=== PATIENT | female | born 1970 | race Caucasian/White ===

== ENCOUNTER → 2016-11-26 | Outpatient (CLI) | payer BC ==
[~2016-11-26] MED LIST: NPR/250 PO
--- NOTE | 2016-11-26 14:55 | MAMMOGRAPHY REPORT ---
UNILATERAL LEFT DIGITAL DIAGNOSTIC MAMMOGRAM: 11/26/2016 CLINICAL HISTORY: 46-year-old woman with a family history of breast cancer = mother, called back fro m screening mammography for a possible increasing clustered microcalcifications in the upper outer p osterior left breast. TECHNIQUE: Spot magnification left CC and ML views were obtained. COMPARISON: Comparison is made to exams dated: 11/06/2016 mammogram, 10/26/2015 mammogram, 10/25/2014 mammogram, 10/23/2013 mammogram, 10/14/2012 mammogram, and 10/10/2011 mammogram - [facility]. BREAST COMPOSITION: The tissue of the left breast is heterogeneously dense, which may obscure small masses. FINDINGS: There is an 8 mm grouping of predominantly round and punctate microcalcifications in the upper outer posterior left breast. On the spot magnification ML views, nearly all of the calcificat ions demonstrate layering, confirming benign milk of calcium. Given that 1-2 of the microcalcificat ions do not demonstrate layering, a short interval follow-up is recommended to ensure stability in 6 months. No obvious mass, architectural distortion or other suspicious clustered calcifications are seen in the visualized left breast. IMPRESSION: ACR-BI-RADS CATEGORY 3: PROBABLY BENIGN There is an 8 mm grouping of round and punctate microcalcifications in the upper outer posterior lef t breast. Nearly all of the microcalcifications demonstrate layering or teacupping on the spot magn ification MLO view, consistent with benign milk of calcium. Given that 1-2 of the microcalcificatio ns do not layer, a short interval follow-up is recommended to ensure stability in 6 months. These results and recommendations were discussed with the patient at the time of the exam. She tent atively scheduled a follow-up appointment prior to leaving our department. Approximately 10% of breast cancers are not detected with mammography. A negative mammographic repor t should not delay biopsy if a clinically suggestive mass is present. Sintia Ordonez M.D. ay/:11/26/2016 13:13:09 Credit Card Associate: Shannon JOHNSON)(Margaret), [facility] letter sent: Follow Up Recommended 3 BI-RADS Code: ACR-BI-RADS Category 3: Probably Benign
== END | disposition home or self-care (01) ==
LOC: C.MAMM 12:45
PROVIDERS: ATTEND Obstetrics & Gynecology
DX: R92.0 Mammographic microcalcification found on diagnostic imaging of breast (principal)

== ENCOUNTER → 2017-03-05 | Outpatient (CLI) | payer BC ==
[~2017-03-05] MED LIST changes: +NAPR250T3 PO; -NPR/250 PO
== END | disposition home or self-care (01) ==
LOC: C.PAPS 09:38
PROVIDERS: ATTEND Obstetrics & Gynecology
DX: Z01.419 Encounter for gynecological examination (general) (routine) without abnormal findings (principal)

== ENCOUNTER → 2017-04-18 | Outpatient (CLI) | payer BC ==
--- NOTE | 2017-04-18 10:18 | DIAGNOSTIC IMAGING REPORT ---
LEFT FOURTH FINGER 3 VIEWS CLINICAL HISTORY: Pain status post trauma COMPARISON: None. DISCUSSION: No acute fractures or dislocations are visualized. IMPRESSION: No fractures or dislocations identified. Electronically signed by: Nicolas Valentine M.D. 04/18/2017 10:17 AM Dictated Date/Time: 04/18/2017 10:16 AM
== END | disposition home or self-care (01) ==
LOC: C.RAD 09:51
PROVIDERS: ATTEND Family Medicine
DX: S62.615A Displaced fracture of proximal phalanx of left ring finger, initial encounter for closed fracture (principal); X58.XXXA Exposure to other specified factors, initial encounter

== ENCOUNTER → 2017-05-28 | Outpatient (CLI) | payer BC ==
[~2017-05-28] MED LIST changes: -NAPR250T3 PO; +NPR/250 PO
--- NOTE | 2017-05-28 13:54 | MAMMOGRAPHY REPORT ---
UNILATERAL LEFT DIGITAL DIAGNOSTIC MAMMOGRAM TOMOSYNTHESIS WITH CAD: 05/28/2017 CLINICAL HISTORY: 46-year-old woman presents for follow-up in the left breast, with particular attent ion to a grouping of round and punctate microcalcifications in the upper outer posterior breast, some of which demonstrated layering, suggesting benign milk of calcium. TECHNIQUE: Left breast tomosynthesis in addition to standard 2D mammography was performed. Spot magn ification left CC and ML views were also obtained. Current study was also evaluated with a Computer Aided Detection (CAD) system. COMPARISON: Comparison is made to exams dated: 11/26/2016 mammogram, 11/06/2016 mammogram, 10/26/2015 m ammogram, 10/25/2014 mammogram, 10/14/2012 mammogram, and 10/10/2011 mammogram - [facility]. BREAST COMPOSITION: The tissue of the left breast is heterogeneously dense, which may obscure small masses. FINDINGS: The parenchymal pattern of the left breast is similar to prior mammograms. There are scatt ered benign coarse and round calcifications. There is a 7.5 mm grouping of round microcalcifications in the upper outer posterior left breast. On the spot magnification views, some of the calcificatio ns demonstrate layering suggesting benign milk of calcium but a few of the punctate microcalcificatio ns do not definitely layer. These are stable comparing to the spot magnification views performed 07/2017, but lumbar stability is needed. Another six-month follow-up diagnostic left mammogram inclu ding spot magnification views is recommended. No new suspicious mass, architectural distortion or cl uster of microcalcifications is seen throughout the left breast. IMPRESSION: ACR-BI-RADS CATEGORY 3: PROBABLY BENIGN Stable mammographic appearance of the left breast including a 7.5 mm grouping/cluster of microcalcifi cations in the upper outer posterior breast. This most likely represent benign fibrocystic changes, given that some of the calcifications demonstrate layering. However another six-month follow-up diag nostic mammogram including spot magnification views is read made to ensure longer stability. Annual right mammography will also be due at that time. These results and recommendations were discussed with the patient at the time of the exam. Approximately 10% of breast cancers are not detected with mammography. A negative mammographic report should not delay biopsy if a clinically suggestive mass is present. Sintia Ordonez M.D. ay/:05/28/2017 13:25:47 Sales Enablement Specialist: Cynthia JOHNSON)(Margaret), [facility] letter sent: Follow Up Recommended 3 BI-RADS Code: ACR-BI-RADS Category 3: Probably Benign
== END | disposition home or self-care (01) ==
LOC: C.MAMM 08:18
PROVIDERS: ATTEND Obstetrics & Gynecology
DX: R92.0 Mammographic microcalcification found on diagnostic imaging of breast (principal)

== ENCOUNTER → 2017-11-28 | Outpatient (CLI) | payer OTHER ==
[~2017-11-28] MED LIST changes: +NAPR250T3 PO; -NPR/250 PO
--- NOTE | 2017-11-28 14:40 | MAMMOGRAPHY REPORT ---
BILATERAL DIGITAL DIAGNOSTIC MAMMOGRAM TOMOSYNTHESIS WITH CAD: 11/28/2017 CLINICAL HISTORY: Short interval follow-up of left breast calcifications. Due for annual mammography of the right breast. The patient reports no palpable lumps or other current complaints. TECHNIQUE: Breast tomosynthesis in addition to standard 2D mammography was performed. Current study was also evaluated with a Computer Aided Detection (CAD) system. Bilateral CC and MLO 2-D and tomosy nthesis images and spot magnification left CC and ML views were obtained. COMPARISON: Comparison is made to exams dated: 05/28/2017 mammogram, 11/26/2016 mammogram, 11/06/2016 m ammogram, 10/26/2015 mammogram, 10/25/2014 mammogram, and 10/23/2013 mammogram - [facility]. BREAST COMPOSITION: The tissue of both breasts is heterogeneously dense, which may obscure small mas ses. FINDINGS: Again noted are grouped calcifications within the left upper outer quadrant, which are pre dominantly punctate/round in morphology. Many of the calcifications demonstrate layering on the late ral view, best demonstrated on the prior 11/26/2016 exam, and are consistent with benign milk of calciu m. The calcifications are stable on spot magnification views dating back to 11/26/2016, and in retrosp ect are not significantly changed on full-field views from the 2013 and 2012 exams. Given the stabil ity and evidence of layering, the calcifications are benign and felt to represent milk of calcium/fib rocystic changes. The remainder of both breasts are stable compared to prior exams, without suspicious masses, calcific ations, or areas of architectural distortion noted. Other scattered bilateral benign-appearing calci fications are not significantly changed. IMPRESSION: ACR BI-RADS CATEGORY 2: BENIGN Grouped calcifications in the left upper outer quadrant are stable and are considered benign and like ly represent milk of calcium/fibrocystic changes. There is no mammographic evidence of malignancy in either breast. A 1 year screening mammogram is recommended. The patient has been verbally notified of the results. Approximately 10% of breast cancers are not detected with mammography. A negative mammographic report should not delay biopsy if a clinically suggestive mass is present. Snow Jones M.D. /:11/28/2017 08:59:51 Ornamental Metal Erector: Shannon Hector, [facility] letter sent: Normal 11/19 BI-RADS Code: ACR BI-RADS Category 2: Benign
== END | disposition home or self-care (01) ==
LOC: C.MAMM 08:31
PROVIDERS: ATTEND Obstetrics & Gynecology
DX: R92.1 Mammographic calcification found on diagnostic imaging of breast (principal)

== ENCOUNTER 2023-11-11 23:00 | Inpatient (IN) ==
--- OUTSIDE RECORDS SUMMARY | 2023-11-11 23:03 | External Medical Summary | Continuity of Care Document ---
Author Name Unknown Organization [address] [id number] Care Team Providers Care Pelletizer Name Role Phone Tomas Shirley Primary Care Physician [phone] Encounter [facility] YANNICKDAMASOR [id number] Date(s): 11/07/23 - 11/07/[address] [address] [phone] Encounter Diagnosis HTN (hypertension)(Discharge Diagnosis) - 11/07/23 PND (post-nasal drip)(Discharge Diagnosis) - 11/07/23 Discharge Disposition: Home or Self Care Attending Physician: CARMENCITA Dong Tara Referring Physician: CARMENCITA Dong Tara Allergies, Adverse Reactions, Alerts No Known Medication Allergies Substance Reaction Severity Status Bee stings rash Active Assessment and Plan Extracted from: Title:follow up Author:CARMENCITA Dong Tara Date: 1.HTN (hypertension) Acute/Chronic: chronic Goal:Resolution/ control Status:stable/controlled Data: records/pt report Plan:BP Still elevated in office. She will get cuff and check at home. Bring cuff in to next appt. Will also check bmp. Follow up in weeks. 2.PND (post-nasal drip) Acute/Chronic: chronic Goal:Resolution/ control Status:stable/controlled Data: records/pt report Plan:Recommend otc nasal steroid . time spent reviewing chart, face to face visit, ordersand documentation: 34 min Immunizations Given and Recorded Vaccine Date Status Refusal Reason zoster vaccine, inactivated 04/10/22 Given Medications EPINEPHrine 0.3 mg injectable kit Start: 07/14/21 16:46:00 EDT, 0.3 mg =, IM, ONCE, Disp# 1 kit, Refills: 1, PRN: as needed for anaphylaxis, Pharmacy: [id number] Start Date: 07/14/21 Status: Ordered lisinopril 5 mg oral tablet Start: 10/22/23 11:56:00 EST, 1 tab, PO, Daily, Disp# 30 tab, Refills: 1, Pharmacy: [id number] Start Date: 10/22/23 Status: Ordered Mental Status 11/07/23 Barriers to Learning one year None evide nt Mandatory Health Literacy Documentation Yes Health Literacy Communication Barriers N ever Primary Language Gabonese Problem List Condition Confirmation Course Effective Dates Status H ealth Status Informant Arthritis of carpometacarpal (CMC) joint of right thumb Confirmed Active Multiple nevi Confirmed Active Changing skin lesion Confirmed Active History of basal cell carcinoma of skin Confirmed Active Hypertrophic scar Confirmed Active Inflamed seborrheic keratosis Confirmed Active Cigarette nicotine dependence Confirmed Active Osteoarthritis Confirmed Active Rosacea Confirmed Active Seborrheic keratoses Confirmed Active SK (solar keratosis) Confirmed Active Sun-damaged skin Confirmed Active Tobacco abuse Confirmed Active Diagnosis Diagnosis Type Effective Dates Health Status Cl inical Service Informant HTN (hypertension) Discharge Diagnosis 11/07/23 Non-Specified PND (post-nasal drip) Discharge Diagnosis 11/07/23 Procedures Procedure Date Related Diagnosis Body Site Status CT of lungs 1 10/22/22 Completed Plain X-ray of right hand 2 09/28/22 Completed Mammography - screening 3 09/22/21 Completed Mammogram - screening 4 09/17/20 C ompleted DIAGNOSTIC COLONOSCOPY 5, 6 06/22/20 Completed Shave biopsy and cauterisation of skin 08/31/19 Completed Mammogram 7, 8 01/19/19 Completed Electrodesiccation of lesion of skin 9 11/24/18 Completed Shave biopsy and cauterisation of skin 05/27/18 Completed Mohs micrographic surgery 01/15/18 Completed Mammogram - localization 10 11/28/17 Completed Shave biopsy 11 11/20/17 Completed Mammogram - localization 12 05/28/17 Completed Mammogram - localization 13 11/26/16 Completed Mammogram 14 11/06/16 Completed Total abdominal hysterectomy and removal of vaginal cuff 04/03/16 Complete d Excision 04/22/13 Completed Shave biopsy of skin 12/19/11 Comp leted Shave biopsy Completed 1Impresion: Multiple small solid noncalcified nodules that messure up to 5mm. These are likely benign and can be assessed on routine annual screening CT. Lung RADS catgory 1 - benign appearance or behavior, nodules with a very low likelihood of becoming a clinically active cancer due to size or lack of growth Continue annual screening 2Impression: 1. No acute fracture or dislocation within the right hand 2. Moderate osteoarthritis of the right first carpometacarpal joint 3There is no mammographic evidence of malignancy. A 1 year screening mammogram is recommended. 4there is no mammographic evidence of malignancy. A 1 year screening mammogram is recommended. 5Diverticulosis in the sigmoid colon. No specimens collected. 6Repeat in 10 years. 7There is no mammographic evidence of malignancy. a 1 yr screening mammogram is recommended 8(01/19/19) No malignancy. One year screening recommended. 9ED&C Left central upper back 10benign groupled calcifications in the left upper outer quadrant are stable and are considered benign and likely represnet mild of calciumfibrocystic changes. there is no mammographic evidence of malginanacyin eithere breast 1 yr screening recommeded 11left lateral forehead 12probably benign stable mammogrampch appearance of the left breast including a 7.5 mm grouping/cluster of microcalcifications in the upper outer posterior breast. this most likely represent benign fibrocystic changes, given that some of the calcifications demonstrate layering. howerever antoehr 6 month f/u diagnostic mammogram incluiding spot magnificaiton views is read made to ensure longer stablitysl 13There is a 8mm grouping of round and punctate microcalcifigation in the upper outer posterior left breast. Nearly all of the microcalcifications demonstrates layering or teacupping on the spot magnification MLO view, cinsistent with benign milk or calcium. Given that 1-2 0f the microcalcifications do not layer, a short interval follow-up is recommended to ensure stability in 6 months 14incomplete eval, need additional imaging possible increasing grouped microcalcifications in left breast needs additional eval Vital Signs Most recent to oldest [Reference Range]: 1 Height 175 cm (11/07/23 8:58 AM) Patient Weight 67.2 kg (11/07/23 8:58 AM) Body Mass Index 21.94 kg/m2 (11/07/23 8:58 AM) Heart Rate 74 bpm (11/07/23 8:58 AM) Respiratory Rate 16 br/min (11/07/23 8:58 AM) Blood Pressure 144/92mmHg (11/07/23 8:58 AM) Cuff Pulse Pressure 52 mmHg (11/07/23 8:58 AM) Social History Social History Type Response Tobacco Current every day sm beatriz, Cigarettes, 0.5 per day. 35 year(s). Started age 16 Years. Smoking Status Current every day [facility] smoker Sex [facility]CM Outpt Note * CARMENCITA Dong Tara: PERFORM Event Display: [facility] Outpt Note Authored Date: [id number] Chief Complaint f/u BP, started lisinopril, has not monitored at home History of Present Illness Pt here for BP/HTN follow up. She has not checked bp at home. No side effects with lisinopril. She also would like her ears checked due to recent ear infection. She does have some nasal congestion still also. Review of Systems Constitutional: No fever, chills, sweats EENT:No vision change, eye pain, , epistaxis, dysphagia, change in hearing, tinnitus, vertigo, oral ulcers or lesions. See HPI Pulmonary: No shortness of breath, dyspnea with exertion, cough, hemoptysis, wheezing, chest pain. Cardiovascular: No chest pain, palpitations, syncope, edema, cyanosis, claudication, orthopnea. Neurologic: No headache, lightheadedness, dizziness Psychiatric: No depression, anxiety Physical Exam Vitals & Measurements HR:74(Monitored) RR:16 BP:144/92 SpO2:97% HT:175cm WT:67.200kg(Dosing) WT:67.2kg BMI:21.94 PHQ2 Data(Data Documented on:11/07/2023 08:58) Emotional health assessment NEGATIVE head- normocephalic eyes- PERRLA , conjunctiva clear, sclera white, anicteric, ears- TM's non-injected, good light reflex, no protrusion or retraction neck-no lymphadenopathy, masses, or thyromegaly Pulmonary- chest expansion symmetric, CTA (clear to auscultation), eupnea, no adventitious sounds (rales, crackles, wheezes) CV (cardiovascular)- RRR no m/r/g (systolic ejection murmur, rubs, gallops), good peripheral perfusion Assessment/Plan 1.HTN (hypertension) Acute/Chronic: chronic Goal:Resolution/ control Status:stable/controlled Data: records/pt report Plan:BP Still elevated in office. She will get cuff and check at home. Bring cuff in to next appt. Will also check bmp. Follow up in weeks. 2.PND (post-nasal drip) Acute/Chronic: chronic Goal:Resolution/ control Status:stable/controlled Data: records/pt report Plan:Recommend otc nasal steroid . time spent reviewing chart, face to face visit, ordersand documentation: 34 min Problem List/Past Medical History Ongoing Arthritis of carpometacarpal (CMC) joint of right thumb Changing skin lesion Cigarette nicotine dependence History of basal cell carcinoma of skin Hypertrophic scar Inflamed seborrheic keratosis Multiple nevi Osteoarthritis Rosacea Seborrheic keratoses SK (solar keratosis) Sun-damaged skin Tobacco abuse Historical Anemia BCC (basal cell carcinoma) Encounter for smoking cessation counseling Hx of skin malignancy Melanocytic nevi of trunk Pain of right thumb Skin lesion Skin tag Procedure/Surgical History CT of lungs (10/22/2022)Plain X-ray of right hand (09/28/2022)Mammography - screening (09/22/2021)Mammogram - screening (09/17/2020)DIAGNOSTIC COLONOSCOPY (06/22/2020)Shave biopsy and cauterisation of skin (08/31/2019)Mammogram (01/19/2019)Electrodesiccation of lesion of skin (11/24/2018)Shave biopsy and cauterisation of skin (05/27/2018)Mohs micrographic surgery (01/15/2018)Mammogram - localization (11/28/2017)Shave biopsy (11/20/2017)Mammogram - localization (05/28/2017)Mammogram - localization (11/26/2016)Mammogram (11/06/2016)Total abdominalhysterectomy and removal of vaginal cuff (04/03/2016)Excision (04/22/2013)Shave biopsy of skin (12/19/2011)Shave biopsy Medications EPINEPHrine(EPINEPHrine 0.3 mg injectable kit), 0.3 mg, IM, ONCE, PRN, 1 refills lisinopril(lisinopril 5 mg oral tablet), 5 mg= 1 tab, PO, Daily, 1 refills Allergies Bee stingsrash No Known Medication Allergies Social History Smoking Status Current every day light smoker Alcohol - No Risk 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 Cigarette smoker: Mother. Pulmonary fibrosis: Father. Stroke: Unknown. Health Status Family Member(s) Family Member(s) Relationship: Mother, Age: 76 Years, Cause: Lung cancer Immunizations Vaccine Date Status zoster vaccine, inactivated 04/10/2022 Given Recommendations Health Maintenance Pending(in the next year) OverDue Adult Influenza Vaccine due05/18/23and every 1year Due Adult COVID-19 Vaccination due11/07/23Unknown Frequency Adult Social Determinants of Health Screening due11/07/23Unknown Frequency Adult Tdap/Td Vaccine due11/07/23Unknown Frequency Lipid Screening due11/07/23Unknown Frequency Pneumococcal Vaccine Adults and Adolescents with Chronic Illness due11/07/23One-time only Shingles Vaccine due11/07/23One-time only Satisfied(in the past 1 year) Satisfied Body Mass Index on11/07/23.Satisfied by IRVING Watt Heather Breast Cancer Screening on10/03/23.Satisfied by TIGRE Jolly Lynnae Electronic Signature on File Electronically Reviewed/Signed by: CARMENCITA Shane Author Signature Dt/Tm:11/07/2023 10:34 AM Department of Family Medicine TB Patient Care team information Care Team Personnel Name: MD Shirley Christopher Position: Physician - Family Med Member Role: Primary Care Provider Address: Address: [address] [address] [place] Care Team Related Persons Name: LORETO LINDO Address: home [address] [place] [phone] Name: LORETO LINDO Address: formerly [facility] Address: [address] [place], [place] [id number]
[2023-11-11] MEDS ORDERED: ONDANSETRON INJ 2 MG/ML 2 ML VIAL IV STA (23:44)
[2023-11-11] MEDS ORDERED: KETOROLAC TROMETHAMINE 15 MG/ML VIAL IV STA (23:44)
[2023-11-12 00:10] LABS: Basophils # (auto) 0.03 K/uL (0.00-0.20); Basophils % (auto) 0.3 %; Eosinophils # (auto) 0.03 K/uL (0.00-0.50); Eosinophils % (auto) 0.3 %; Hematocrit (blood only) 39.6 % (37.0-47.0); Hemoglobin 14.4 g/dl (12.0-16.0); Immature Granulocytes # (auto) 0.04 K/uL (0.01-0.20); Immature Granulocytes % (auto) 0.4 %; Lymphocytes # (auto) 0.99 K/uL (1.20-3.40); Mean Corpuscular Hemoglobin 31.7 pg (25.0-34.0); Mean Corpuscular Hgb Conc 36.4 g/dL (32.0-36.0); Mean Corpuscular Volume 87.2 fL (80.0-100.0); Mean Platelet Volume 9.1 fL (9.4-12.4); Monocytes # (auto) 0.41 K/uL (0.11-0.59); Monocytes % (auto) 4.5 %; Neutrophils # (auto) 7.53 K/uL (1.40-6.50); Neutrophils % (auto) 83.5 %; Platelet Count 301 K/uL (130-400); RDW Coefficient of Variation 11.8 % (11.5-14.5); RDW Standard Deviation 37.9 fL (36.4-46.3); Red Blood Count 4.54 M/uL (4.20-5.40); White Blood Count 9.03 K/ul (4.8-10.8)
[2023-11-12] MEDS ORDERED: SODIUM CHLORIDE 0.9% 1,000 ML IV ONE (00:14)
--- NOTE | 2023-11-12 00:14 | Emergency Department Note ---
Impression & Plan Renal infarction Admit to the [facility] ED Provider Note NAME: REBECA LINDO AGE: 53 SEX: Female INFORMANT: Patient ED PROVIDER(S): Concha Wharton DO CHIEF COMPLAINT: Right lower quadrant abdominal PLAN: Disposition: Admit to the [facility] MEDICAL DECISION MAKING: This is a 53-year-old female patient who presents to the emergency department with right lower quadrant abdominal pain since 2 PM this afternoon. She then developed loss of appetite and vomiting. Laboratory studies revealed no leukocytosis or anemia. Renal function tests were normal. Glucose was 115. Patient's pain and nausea were treated with IV Toradol and Zofran. He went for CT scan of the abdomen/pelvis which showed a right-sided renal infarct but no evidence of acute appendicitis. This is not what I was expecting. I explained the situation to the patient and discussed the case with the [facility]ist. We ordered a renal arterial ultrasound which showed no arterial clot but did confirm the infarctions. The admitting team will discuss the case with nephrology. Care/management discussed with: seed district sales manager and [facility] Triage Nursing notes: Reviewed and agree with them. Vital Signs: reviewed and remarkable for mild hypertension Additional History obtained from: Her who is at the bedside Chronic Medical/Social Conditions affecting care: Recently diagnosed hypertension. Started lisinopril 2 weeks ago Differential Diagnosis: Colitis, diverticulitis, appendicitis Diagnostics, independently interpreted by me: Cardiac Monitoring: Normal sinus rhythm at 76 Medical decision rules: None Imaging studies: CT scan abdomen and pelvis: As per stat rad Renal arterial ultrasound: As per stat red HPI: 53 year old Female arrives for evaluation of right lower quadrant abdominal pain and vomiting. Patient developed right lower quadrant abdominal pain and vomiting around 2:00 this afternoon. She noted that she had no appetite and had increased gas production. She denies having symptoms like this in the past. Patient states that she was recently diagnosed with hypertension and started taking lisinopril. PAST MEDICAL HISTORY: Hypertension, PAST SURGICAL HISTORY: Hysterectomy, SOCIAL HISTORY: Lives with her , does admit to being under increased stress HOME MEDICATIONS: See list ALLERGIES: None VITALS: See Below PHYSICAL EXAMINATION: HEENT: Head - normocephalic and atraumatic. Pupils are equal, round, and reactive to light. Extraocular eye muscles are intact, and sclera are anicteric. Nose - moist nasal mucosa without discharge. Mouth - moist buccal mucosa. Oropharynx is nonerythematous and there is no tonsillar exudate or edema noted. Neck: Supple; no JVD, nuchal rigidity, cervical lymphadenopathy, or auscultated bruits. Heart: Regular rate and rhythm. There is a normal S1 and S2 with no murmurs, clicks, or gallops appreciated. Lungs: Clear to auscultation bilaterally with no wheezes, rales, or rhonchi. Abdomen: Soft, moderate tenderness to palpation over McBurney's point, nondistended, with good bowel sounds. There are no palpable pulsatile masses or hepatosplenomegaly. There is no guarding, rigidity, or rebound noted. Extremities: No evidence of cyanosis, clubbing, or edema. There are easily palpable peripheral pulses. Skin: warm and dry with good turgor and no rashes. Emergency department treatment: IV Toradol, IV Zofran, IV normal saline Emergency department course: Patient was evaluated in room A-10. A complete history and physical was performed. An IV lock was initiated and labs were drawn as above. Patient was given a dose of IV Toradol and IV Zofran for pain and nausea. She was bolused with a liter of normal saline solution. She will go for CT scan of the abdomen/pelvis. I reviewed the results of the laboratory studies with the patient and her . I reviewed the results of the CT scan with the patient and her and discussed the case with the [facility] Hospitalist. The patient will go for a renal arterial ultrasound. The admitting team will discuss the case with nephrology. Past Med/Surg History Medical History (Updated 11/13/23 @ 02:13 by Concha Wharton DO) HTN (hypertension) Surgical History (Updated 11/12/23 @ 10:58 by Johnny Escobar MD) H/O: hysterectomy Social History Smoking Status: Current every day smoker Tobacco Type: Cigarettes Hx Alcohol Use: No Hx Substance Use: No Preferred Language: Canadian Communication Ability: Effective Laboratory Sampler Required: No Beliefs That Will Affect Care: None Current Living Situation: Spouse Feels Safe at Home: Yes Allergies Allergies Allergy/AdvReac Type Severity Reaction Status Date / Time No Known Allergies Allergy Unverified 04/03/16 11:34 Home Meds Home Medications Medication Instructions Recorded Confirmed acetaminophen 500 mg tablet 500 mg PO DIRECTED PRN Pain 11/12/23 11/12/23 lisinopril 5 mg tablet 5 mg PO DAILY 11/12/23 11/12/23 Results & Data (ED) Vital Signs Vital Signs - 24 hr 11/11/23 23:04 11/11/23 23:47 Temperature 36.2 C L Temperature Source Temporal Artery Scan Pulse Rate 66 Respiratory Rate 18 Respiratory Effort / Characteristics Non-Labored Spontaneous Respiratory Depth Normal Blood Pressure 156/89 H Blood Pressure Mean 111 Pulse Oximetry 97 Oxygen Delivery Method Room Air Sepsis Recent Fever Within 48 Hours No Sepsis New/Unexplained Change in Mental Status No Sepsis Action Taken by Nursing No Action Required Laboratory Data 11/12/23 09:38 11/12/23 09:38 Lab Results 11/11/23 11/12/23 Range/Units 23:25 00:00 WBC 9.03 (4.8-10.8) K/ul RBC 4.54 (4.20-5.40) M/uL Hgb 14.4 (12.0-16.0) g/dl Hct 39.6 (37.0-47.0) % MCV 87.2 (80.0-100.0) fL MCH 31.7 (25.0-34.0) pg MCHC 36.4 H (32.0-36.0) g/dL RDW Std Deviation 37.9 (36.4-46.3) fL RDW Coeff of Radha 11.8 (11.5-14.5) % Plt Count 301 (130-400) K/uL MPV 9.1 L (9.4-12.4) fL Immature Gran % (Auto) 0.4 % Neut % (Auto) 83.5 % Lymph % (Auto) 11.0 % [place] % (Auto) 4.5 % Eos % (Auto) 0.3 % Baso % (Auto) 0.3 % Neut # (Auto) 7.53 H (1.40-6.50) K/uL Lymph # (Auto) 0.99 L (1.20-3.40) K/uL [place] # (Auto) 0.41 (0.11-0.59) K/uL Eos # (Auto) 0.03 (0.00-0.50) K/uL Baso # (Auto) 0.03 (0.00-0.20) K/uL Immature Gran # (Auto) 0.04 (0.01-0.20) K/uL Sodium 138 (136-145) mmol/L Potassium 3.6 (3.5-5.1) mmol/L Chloride 104 (98-107) mmol/L Carbon Dioxide 24 (21-32) mmol/L Anion Gap 10 (3-11) BUN 15 (6-23) mg/dl Creatinine 0.76 (0.6-1.2) mg/dl Est Cr Clr Drug Dosing 87.4 ml/min Est GFR ( Amer) 102.3 ml/min Est GFR (Non-Af Amer) 88.3 ml/min BUN/Creatinine Ratio 19.7 (10-20) Glucose 115 H (70-99(Fasting)) mg/dl Calcium 9.2 (8.6-10.3) mg/dl Total Bilirubin 0.6 (0.2-1.0) mg/dl AST 15 (13-39) U/L ALT 13 (7-52) U/L Alkaline Phosphatase 75 (34-104) U/L Total Protein 7.2 (6.0-8.3) gm/dl Albumin 4.3 (3.4-5.0) gm/dl Globulin 2.9 (2.5-4.0) gm/dl Albumin/Globulin Ratio 1.5 (0.9-2) Lipase 32 (11-82) U/L Urine Color Yellow Urine Appearance Clear (Clear) Urine pH 6.0 (4.5-7.5) Ur Specific [place] 1.017 (1.000-1.030) Urine Protein Trace H (Negative) Urine Glucose (UA) Negative (Negative) Urine Ketones 1+ H (Negative) Urine Blood 2+ H (Negative) Urine Nitrite Negative (Negative) Urine Bilirubin Negative (Negative) Urine Urobilinogen Negative (Negative) Ur Leukocyte Esterase Negative (Negative) Urine WBC (Auto) 1-5 (0-5) /hpf Urine RBC (Auto) 10-30 H (0-4) /hpf U Hyaline Cast (Auto) 1-5 (0-5) /lpf U Epithel Cells (Auto) >30 H (0-5) /lpf Urine Bacteria (Auto) Negative (Negative) Administered Medications Acetaminophen (Acetaminophen 500 Mg Tab) 500 mg PO Q4H PRN PRN Reason: pain first line Stop: 12/12/23 08:15 Last Admin: 11/12/23 12:04 Dose: 500 mg Documented By: ARABELLA Hydromorphone HCl (Hydromorphone Inj 0.5 Mg/0.5 Ml Syr) 0.5 mg IV Q4H PRN PRN Reason: Moderate Pain (4,5,6) on NRS Stop: 11/26/23 13:43 Last Admin: 11/12/23 16:33 Dose: 0.5 mg Documented By: MURIEL Heparin Sodium/Dextrose (Heparin Sodium/Dextrose) 25,000 units in 500 mls @ 23 mls/hr IV .[id number] [facility]; Protocol Stop: 12/12/23 02:29 Last Admin: 11/12/23 22:28 Dose: 1,150 units/hr, 23 mls/hr Documented By: KIMBERLY Co-signed By: AMRITA Titration: 11/12/23 22:28 Dose: Infused Documented By: KIMBERLY Co-signed By: ARMITA Titration: 11/12/23 18:56 Dose: 1,150 units/hr, 23 mls/hr Documented By: KIMBERLY Co-signed By: MURIEL Titration: 11/12/23 13:45 Dose: 1,150 units/hr, 23 mls/hr Documented By: MURIEL Co-signed By: MARLYN Titration: 11/12/23 10:32 Dose: 1,150 units/hr, 23 mls/hr Documented By: ARABELLA Co-signed By: ANNA Admin: 11/12/23 03:17 Dose: 1,200 units/hr, 24 mls/hr Documented By: CASSIE Co-signed By: KETTY Ondansetron HCl (Ondansetron Inj 2 Mg/Ml 2 Ml Vial) 4 mg IV Q4H PRN PRN Reason: Nausea Stop: 12/12/23 16:29 Last Admin: 11/12/23 18:36 Dose: 4 mg Documented By: MURIEL Discontinued Medications Heparin Sodium (Porcine) (Heparin Sod (Porcine) 1000 Unit/Ml) 5,000 units IV TODAY@0220 [facility] Stop: 11/12/23 03:30 Last Admin: 11/12/23 03:17 Dose: 5,000 units Documented By: CASSIE Co-signed By: KETTY Hydromorphone HCl (Hydromorphone Inj 0.5 Mg/0.5 Ml Syr) 0.25 mg IV Q6H PRN PRN Reason: Pain, breakthrough Stop: 11/26/23 08:15 Last Admin: 11/12/23 08:51 Dose: 0.25 mg Documented By: ARABELLA Sodium Chloride (Nss) 1,000 mls @ 999 mls/hr IV .Q1H1M ONE Stop: 11/12/23 01:14 Last Infusion: 11/12/23 01:41 Dose: Infused Documented By: Admin: 11/12/23 00:48 Dose: 999 mls/hr Documented By: OLGA Sodium Chloride (Nss) 500 mls @ 125 mls/hr IV .Q4H ANGELI Stop: 12/12/23 01:44 Last Infusion: 11/12/23 03:12 Dose: Infused Documented By: Admin: 11/12/23 01:57 Dose: 125 mls/hr Documented By: OLGA Sodium Chloride (Nss) 1,000 mls @ 125 mls/hr IV .Q8H ANGELI Stop: 11/12/23 18:44 Last Infusion: 11/12/23 13:57 Dose: Infused Documented By: Admin: 11/12/23 10:32 Dose: 125 mls/hr Documented By: Infusion: 11/12/23 10:32 Dose: Infused Documented By: Admin: 11/12/23 03:16 Dose: 125 mls/hr Documented By: CASSIE Parenteral Electrolytes (Plasma-Lyte A Ph 7.4) 500 mls @ 999 mls/hr IV .Q31M ONE Stop: 11/12/23 16:28 Last Infusion: 11/12/23 16:41 Dose: Infused Documented By: Admin: 11/12/23 16:07 Dose: 999 mls/hr Documented By: MURIEL Acetaminophen (Ofirmev) 1,000 mg in 100 mls @ 400 mls/hr IV NOW STA Stop: 11/12/23 22:16 Last Infusion: 11/12/23 22:57 Dose: Infused Documented By: Admin: 11/12/23 22:28 Dose: 400 mls/hr Documented By: KIMBERLY Ioversol (Optiray 320 500ml) 100 ml IV ONCE ONE Stop: 11/12/23 00:39 Last Admin: 11/12/23 00:38 Dose: 90 ml Documented By: DANIELITO Ioversol (Optiray 320 125ml) 119 ml IV ONCE ONE Stop: 11/12/23 17:40 Last Admin: 11/12/23 17:39 Dose: 119 ml Documented By: GRAY Ketorolac Tromethamine (Ketorolac Tromethamine 15 Mg/Ml Vial) 15 mg IV NOW STA Stop: 11/11/23 23:45 Last Admin: 11/11/23 23:50 Dose: 15 mg Documented By: OLGA Lisinopril (Lisinopril 5 Mg Tab) 5 mg PO DAILY ONE Stop: 11/12/23 16:52 Last Admin: 11/12/23 18:02 Dose: 5 mg Documented By: MURIEL Ondansetron HCl (Ondansetron Inj 2 Mg/Ml 2 Ml Vial) 4 mg IV NOW STA Stop: 11/11/23 23:45 Last Admin: 11/11/23 23:50 Dose: 4 mg Documented By: OLGA Ondansetron HCl (Ondansetron Inj 2 Mg/Ml 2 Ml Vial) 4 mg IV NOW STA Stop: 11/12/23 12:14 Last Admin: 11/12/23 12:27 Dose: 4 mg Documented By: ARABELLA Discharge Plan Visit Data Chief Complaint: Abdominal Pain Stated Complaint: LOWER RIGHT ABDOMINAL PAIN, VOMITING ED Provider: Concha Wharton Discharge Problem: Renal infarction Patient Disposition: Admitted As Inpatient Discharge Instructions Interventions: ED Discharge Assessment Last Done: 11/12/23 02:23
[2023-11-12 00:18] LABS: Albumin Globulin Ratio 1.5 (0.9-2); Albumin Level 4.3 gm/dl (3.4-5.0); BUN Creatinine Ratio 19.7 (10-20); Bilirubin,Total 0.6 mg/dl (0.2-1.0); Calcium 9.2 mg/dl (8.6-10.3); Creatinine Clr Calc Pharmacy 87.4 ml/min; Est GFR (African American) 102.3 ml/min; Est GFR (Non-African American) 88.3 ml/min; Globulin 2.9 gm/dl (2.5-4.0); Potassium 3.6 mmol/L (3.5-5.1); Total Protein 7.2 gm/dl (6.0-8.3)
[2023-11-12 00:20] LABS: Appearance Urine Clear (Clear); Bacteria Urine Automated Negative (Negative); Bilirubin Urine Negative (Negative); Blood Urine 2+ (Negative); Color Urine Yellow; Epithelial Cell Urine Auto >30 /lpf (0-5); Glucose Urine UA Negative (Negative); Ketones Urine 1+ (Negative); Leukocyte Esterase Urine Negative (Negative); Nitrite Urine Negative (Negative); Protein Urine Trace (Negative); Specific Gravity Urine 1.017 (1.000-1.030); Urobilinogen Urine Negative (Negative)
[2023-11-12] MEDS ORDERED: OPTIRAY 320 500ml IV ONE (00:38)
--- NOTE | 2023-11-12 01:09 | CT Scan Report ---
Exam(s): CT ABDOMEN + PELVIS With Contrast IV Amt: 90 ML OPTIRAY 320 EXAM: CT Abdomen and Pelvis With Intravenous Contrast CLINICAL HISTORY: Reason for exam: eval for appy. TECHNIQUE: Axial computed tomography images of the abdomen and pelvis with intravenous contrast. Automated exposure control was utilized for the study. A dose lowering technique was utilized adhering to the principles of ALARA. CONTRAST: Patient received 90 ML OPTIRAY 320 of IV contrast COMPARISON: No relevant prior studies available. FINDINGS: Lung bases are clear. There is scattered benign hepatic cysts. Gallbladder and common bile duct are unremarkable. Pancreas, spleen, and adrenal glands are unremarkable. There is a segmental infarct of the right kidney lower pole. Additional smaller infarct may be present in the lower pole of the left kidney. There is no hydronephrosis. Study is not optimized for evaluation of the renal arteries, but the main renal arteries appear grossly patent bilaterally. There is no aortic aneurysm. Celiac artery, SMA, AMANDA common iliac arteries appear patent. There is no adenopathy. There is no free fluid or free air. Appendix is normal. There is no bowel obstruction or inflammation. Uterus is surgically absent. Urinary bladder is unremarkable. There is multilevel degenerative disc disease in the lumbar spine. There are no acute osseous findings. IMPRESSION: 1. Segmental infarct involving the lower pole of the right kidney. 2. Possible smaller infarct in the lower pole of the left kidney. 3. Renal arteries are suboptimally characterized on this exam, but the main renal arteries appear grossly patent bilaterally. 4. Appendix is normal. Electronically signed by: Sabrina Castelan M.D. 11/12/23 01:09 AM
[2023-11-12] MEDS ORDERED: SODIUM CHLORIDE 0.9% 500 ML IV SCH (01:45)
--- NOTE | 2023-11-12 02:00 | History & Physical Report ---
Date of Service November 12, 2023 Assessment & Plan (1) Renal infarct: Plan: 53yo Female with PMH hysterectomy here for right sided abd pain found to have right renal infarct. Right renal infarct -Seen on CT A/P with contrast, possible small left renal infarct as well -admit to med/tele to monitor for possible afib -GFR 102.3 -ordered echo -ordered hypercoagulability panels -ordered heparin drip -placed nephrology consult -monitor BMP -US kidney renal artery pending -consider CTA A/P Elevated BP without diagnosis of HTN -in the setting of presumed new renal infarct -may require starting IWONA or ARB FENa: regular Code Status: Full DVT PPX: heparin drip Dispo: med/tele Lorraine Love D.O. PGY 3, FCM History of Present Illness Primary Care Provider: James De La Rosa 53yo Female with PMH hysterectomy here for right sided abd pain found to have right renal infarct. Patient states today she developed right sided abd pain while eating, localized and constant, she developed loss of appetite vomitting, given persistant pain she came to the ED. Patient denies any change in bowel or bladder function, no altered sensation in abd. In ED she received toradol and zofran, which helped her pain and nausea. Patient states a few weeks she developed an ear infection, has since recovered but also lost her sense of taste and her BP increased. She denies any current medications or PMH. States she had a holter monitor years ago was normal, states her BP usually on the lower end. Patient had hysterectomy 2015 for heavy menstrual bleed. Last colonoscopy 2019 normal, most recent mammogram result pending. Patient has family history HTN, HLD, mom had breast and lung cancer, dad had colon cancer and lymphoma. Patient smokes 7-8 cigs daily. Allergies Allergy/AdvReac Type Severity Reaction Status Date / Time No Known Allergies Allergy Unverified 04/03/16 11:34 Home Medications Medication Instructions Recorded Confirmed Type acetaminophen 500 mg tablet 500 mg PO DIRECTED PRN Pain 11/12/23 11/12/23 History apixaban 5 mg tablet (Eliquis) 5 mg PO Q12H 30 days #72 tabs 11/13/23 Rx lisinopril 10 mg tablet 10 mg PO QAM 30 days #30 tabs 11/13/23 Rx ondansetron 4 mg disintegrating 4 mg PO Q8H PRN nausea and 11/13/23 Rx tablet vomiting 5 days #15 tabs Past Med/Surg History Medical History (Updated 11/13/23 @ 02:13 by Concha Wharton DO) HTN (hypertension) Surgical History (Updated 11/12/23 @ 10:58 by Johnny Escobar MD) H/O: hysterectomy Social History Smoking Status: Current every day smoker Tobacco Type: Cigarettes Hx Alcohol Use: No Hx Substance Use: No Preferred Language: Guatemalan Communication Ability: Effective Pegger Dobby Looms Required: No Beliefs That Will Affect Care: None Current Living Situation: Spouse Feels Safe at Home: Yes Assistive Devices: None Physical Exam Constitutional: WD/WN, vitals as above Eyes: PERRL, conjunctivae normal, anicteric sclerae ENMT: external ear and nose normal, oropharynx normal Neck: trachea midline, no thyromegaly Respiratory: normal respiratory effort, lungs clear to auscultation Cardiovascular: RRR, no murmur, no edema Gastrointestinal (Abdomen): Inspection/Auscultation: abdomen normal to inspection Percussion/Palpation: + abdomen tender (RLQ) and abdomen soft Skin: no rashes, warm and dry Results & Data Results & Data Vital Signs (Past 12 Hours) Vital Signs Temp Pulse Resp BP Pulse Ox O2 Del Method 11/12/23 00:39 72 18 143/81 H 94 11/12/23 00:01 60 20 156/95 H 97 11/11/23 23:47 97 Room Air 11/11/23 23:04 36.2 C L 66 18 156/89 H Supervising Physician Co-Signing Physician Notes Patient seen and examined, chart reviewed, case discussed with Dr. Love and I agree with the assessment and plan as above Resident Activity Tracking Resident Involvement: Resident Care Provided Care Provided: Adult Hospital Medicine
[2023-11-12] MEDS ORDERED: Heparin IV Adult Wt-Based Standard w/ INITIAL Bolus Protocol IV SCH (02:07)
[2023-11-12] MEDS ORDERED: HEPARIN SOD (PORCINE) 1000 UNIT/ML IV SCH (02:20)
--- NOTE | 2023-11-12 03:03 | Ultrasound Report ---
Exam(s): XR OTHER US Renal Duplex EXAM: US Duplex Arterial/Venous of the Kidneys, Complete CLINICAL HISTORY: Reason for exam: renal infarcts. TECHNIQUE: Real-time duplex ultrasound scan of the kidneys integrating B-mode two- dimensional vascular structure, Doppler spectral analysis and color flow Doppler imaging. COMPARISON: No relevant prior studies available. FINDINGS: Aorta: Unremarkable as visualized. Normal abdominal aorta. Right renal arteries: Main right renal artery is patent with peak systolic velocity of 71 cm/s. Normal waveform. Left renal arteries: Main left renal artery is patent with peak systolic velocity of 176 cm/s. Normal waveform. Renal veins: Unremarkable. The renal veins are patent bilaterally. Right kidney: Right kidney measures 11.2 cm. No hydronephrosis. No significant flow to the lower pole of the right kidney consistent with patient's known renal infarct. Left kidney: Left kidney measures 10.5 cm. No hydronephrosis. IMPRESSION: No elevated velocities in the main renal arteries to suggest hemodynamically significant renal artery stenosis. No flow to the lower pole of the right kidney consistent with known renal infarct. Electronically signed by: Johan Tapia M.D. 11/12/23 03:02 AM
[2023-11-12] MEDS: SODIUM CHLORIDE 0.9% 1,000 ML IV SCH ×2 (03:16→10:32)
[2023-11-12] MEDS: HEPARIN SODIUM/DEXTROSE 25,000 UNITS/500 ML BAG IV SCH ×2 (03:17→22:28)
[2023-11-12 04:18] LABS: Partial Thromboplastin Ratio 0.9; Partial Thromboplastin Time 26 Seconds (21-31); Prothrombin Time 10.5 Seconds (9.0-12.0)
[2023-11-12] MEDS ORDERED: HYDROmorphone INJ 0.5 MG/0.5 ML SYR IV PRN ×2 (08:16→13:44)
[2023-11-12 09:52] LABS: Hematocrit (blood only) 37.9 % (37.0-47.0); Hemoglobin 13.2 g/dl (12.0-16.0); Mean Corpuscular Hemoglobin 31.2 pg (25.0-34.0); Mean Corpuscular Hgb Conc 34.8 g/dL (32.0-36.0); Mean Corpuscular Volume 89.6 fL (80.0-100.0); Mean Platelet Volume 8.8 fL (9.4-12.4); Platelet Count 247 K/uL (130-400); RDW Coefficient of Variation 11.9 % (11.5-14.5); RDW Standard Deviation 38.3 fL (36.4-46.3); Red Blood Count 4.23 M/uL (4.20-5.40); White Blood Count 9.98 K/ul (4.8-10.8)
--- NOTE | 2023-11-12 10:02 | XCELERA ---
[id number] \\[id number]
[2023-11-12 10:07] LABS: BUN Creatinine Ratio 15.7 (10-20); Calcium 8.4 mg/dl (8.6-10.3); Creatinine Clr Calc Pharmacy 94.9 ml/min; Est GFR (Non-African American) 97.5 ml/min; Potassium 3.6 mmol/L (3.5-5.1)
[2023-11-12 10:21] LABS: ANTI-Xa, UFH(UnfractionatedHep 0.71 IU/ml (0.3-0.7)
--- NOTE | 2023-11-12 11:05 | Hospitalist Progress Note ---
Date of Service November 12, 2023 Assessment & Plan (1) Renal infarct: Plan: Patient presented with pain onset 2 PM 11/11/2023 gradually worsening in the left abdomen/flank. Peaked at 7/10 and is now improving at around 4/10 on morning reassessment CTA/PShow segmental infarct of the lower pole of the right kidney, possible smaller infarct in the lower pole of the left kidney. Renal artery duplex shows no flow the lower pole of right kidney consistent with known infarct, otherwise no elevated velocity in the main arteries to suggest significant [facility] Nephrology consulted, agree with continuing lisinopril for blood pressure control and anticoagulation at this time. Consulted [facility] vascular surgery Dr. Mya Jaime given acute renal infarct. Reviewed case, agree with anticoagulation at this time. Recommended completion of workup with CTAchest to rule out aortic abnormalities. Patient is outside the window for revascularization. CTA ordered, appreciate recommendations CT aortic protocol pending as noted Heparin drip continued, factor V/Cardiolipin/beta-2 GPI pending. Patient has a history of active tobacco use, and has a family history of multiple miscarriages in her mother. Patient has a history of hysterectomy due to recurrent clot/bleeding (2) History of heavy vaginal bleeding: Plan: S/p hysterectomy in the past with [facility] (3) HTN (hypertension): Plan: Lisinopril continued Labetalol on-call for severe/symptomatic hypertension Plan DVT prophylaxis: Anticoagulated Diet: Regular Disposition: PCU CODE STATUS: Full code Admission and Anticipated Discharge Date Admission Date: November 12, 2023 Subjective Seen at the bedside. She reports her pain peaked at a 7 out of 10 overnight, began yesterday around 2 PM. Is now at about 4 out of 10, and continuing to improve. Abdomen is mostly in her flank. Denies fever, chills, sweats. No lightheadedness or dizziness. She reports she is peeing normally without pain or blood. She endorses a family history of recurrent miscarriages up to 4 5 and her mother, no known other vascular disease in her or her family. Patient does endorse that she had a hysterectomy due to recurrent heavy bleeding with blood clots with no issues with bleeding since. No DVT/PE. She is a daily smoker about 3 pack/day for many years. Denies chest pain, chest pressure, shortness of breath, difficulty breathing. No pain between her shoulder blades. No extremity pain. Sensation and strength are normal. She does not take any hormonal agents or estrogens Physical Exam Physical Exam: General: A&Ox3. NAD. Cooperative. HEENT: Atraumatic, normocephalic. Pulm: CTAB A&P. -wheezes, -rales, -rhonchi. Symmetrical chest rise. No increased work of breathing. No respiratory distress. Cardiac: RRR, -mrg. Radial pulses intact and symmetrical. Abdominal: Mild L flank TT percussion, otherwise nontender, nondistended, soft. BS present. Ext: warm, dry. Results & Data Results & Data Vital Signs (Past 12 Hours) Vital Signs Temp Pulse Pulse Resp BP BP Pulse Ox 11/12/23 08:52 67 18 178/104 H 97 11/12/23 08:00 63 20 178/104 H 97 11/12/23 07:28 62 11/12/23 06:17 55 L 12 170/98 H 95 11/12/23 03:01 36.8 C 11/12/23 03:00 36.8 C 11/12/23 02:58 62 17 98 11/12/23 02:58 61 16 131/71 11/12/23 01:30 74 18 153/95 H 97 11/12/23 01:00 60 14 148/86 H 96 11/12/23 00:39 72 18 143/81 H 94 11/12/23 00:01 60 20 156/95 H 97 11/11/23 23:47 97 11/11/23 23:40 63 11/11/23 23:04 36.2 C L 66 18 156/89 H O2 Del Method 11/12/23 08:52 Room Air 11/12/23 08:00 Room Air 11/12/23 07:28 11/12/23 06:17 Room Air 11/12/23 03:01 11/12/23 03:00 11/12/23 02:58 11/12/23 02:58 11/12/23 01:30 11/12/23 01:00 11/12/23 00:39 11/12/23 00:01 11/11/23 23:47 Room Air 11/11/23 23:40 11/11/23 23:04 PG Care Time/CCT Total # of Minutes Spent Total Time Spent with Patient: Total time spent is greater than 50% in coordination of care (as documented) at patient's floor/unit and/or counseling patient: Coding Level of Care Code None Diagnoses Renal infarct N28.0 History of heavy vaginal bleeding Z87.42 HTN (hypertension) I10
--- NOTE | 2023-11-12 11:58 | Electrocardiogram Report ---
Test Reason : Blood Pressure : / mmHG Vent. Rate : 058 BPM Atrial Rate : 058 BPM P-R Int : 154 ms QRS Dur : 084 ms QT Int : 422 ms P-R-T Axes : 062 057 055 degrees QTc Int : 414 ms Sinus bradycardia Otherwise normal ECG When compared with ECG of 20-MAR-2016 11:59, No significant change was found Confirmed by Tomas Enriquez ([id number]) on 11/12/2023 11:58:30 AM Referred By: James De La Rosa Confirmed By:Alfonso Enriquez
[2023-11-12] MEDS: ACETAMINOPHEN 500 MG TAB PO PRN (12:04)
[2023-11-12] MEDS ORDERED: ONDANSETRON INJ 2 MG/ML 2 ML VIAL IV STA (12:13)
[2023-11-12] MEDS ORDERED: HYDROmorphone INJ 1 MG/ML SYRINGE IV PRN (13:44)
[2023-11-12] MEDS ORDERED: PLASMA-LYTE A 500 ML IV ONE (15:58)
--- NOTE | 2023-11-12 16:24 | Nephrology Consultation ---
Date of Consultation November 12, 2023 Assessment & Plan (1) Renal infarct: (2) HTN (hypertension): Plan 53 y o F with b/r renal infarct on CT A/P after presented with abdominal pain. Normal kidney function. UA with microscopic hematuria. Doppler with no Renal artery disease. Has normal renal function. She is already out of the window for any percutaneous intervention. Hypercoagulability study was ordered, currently pending. -- Focus on blood pressure control, resume lisinopril 5 mg p.o. daily and increase dose as tolerated -- Check 2D echo for any evidence of cardiac shunt -- Agree with continuing on anticoagulation -- Strongly encouraged to quit smoking Thank you for allowing me to participate in your patient's care. It was a pleasure to see Dorita History of Present Illness Reason for Consultation: Renal infarct, Hypertension Attending Physician: Johnny Escobar MD History of Present Illness Ms. Dorita Lomas 53yo Female otherwise healthy with no chronic health issues admitted with abdominal pain and b/l renal infarct. Nephrology consult was requested for management of bilateral renal infarct and hypertension. EMR records are reviewed in detail during patient visit. Dorita presented to ER yesterday evening after she developed intractable abdominal pain vomiting in the afternoon. She reports recently over the last few weeks she had another episode of vomiting and some abdominal discomfort. She denied gross hematuria. she was also noted to have blood pressure running high and she was started on lisinopril 5 mg daily by her PCP. Lab on admission showed normal renal function, creatinine 0.8, electrolyte acceptable. Urinalysis with microscopic hematuria. Chest x-ray unremarkable. Blood pressure noted to be elevated. CT abdomen pelvis with IV contrast showed bilateral segmental renal infarct. Renal arteries are otherwise unremarkable on Doppler. No family history of hypercoagulability disorder has a family history of multiple miscarriages in her mother. Current active smoker smokes about 6 to 7 cigarettes/day, denies heavy alcohol intake. Had hysterectomy 2016 for heavy menstrual bleed. Last colonoscopy 2019 normal, most recent mammogram normal. Has family history HTN, HLD, mom had breast and lung cancer, dad had colon cancer and lymphoma. Works at [employer]. Reports some improvement in abdominal pain. Allergies Allergy/AdvReac Type Severity Reaction Status Date / Time No Known Allergies Allergy Unverified 04/03/16 11:34 Home Medications Medication Instructions Recorded Confirmed Type acetaminophen 500 mg tablet 500 mg PO DIRECTED PRN Pain 11/12/23 11/12/23 History lisinopril 5 mg tablet 5 mg PO DAILY 11/12/23 11/12/23 History Patient History Medical History (Updated 11/12/23 @ 10:58 by Johnny Escobra MD) HTN (hypertension) Surgical History (Updated 11/12/23 @ 10:58 by Johnny Escobar MD) H/O: hysterectomy Social History Smoking Status: Current every day smoker Tobacco Type: Cigarettes Hx Alcohol Use: No Hx Substance Use: No Preferred Language: Azeri Communication Ability: Effective 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 Physical Exam Constitutional: WD/WN, vitals as above no acute distress Eyes: + anicteric sclerae Neck: normal visual inspection Respiratory: Auscultation: lungs clear to auscultation bilaterally Cardiovascular: RRR, no murmur, no edema Gastrointestinal (Abdomen): Inspection/Auscultation: abdomen normal to inspection Percussion/Palpation: abdomen soft; abdomen nontender Musculoskeletal: Extremities: extremities normal to inspection Skin: no rashes, warm and dry Neurologic: no focal motor deficits Psychiatric: Orientation: alert and oriented x 3 Affect: euthymic affect Results & Data Vital Signs (Past 12 Hours) Vital Signs Temp Pulse Pulse Resp BP BP Pulse Ox 11/12/23 15:16 60 11/12/23 13:02 36.8 C 61 18 171/98 H 98 11/12/23 08:52 67 18 178/104 H 97 11/12/23 08:00 63 20 178/104 H 97 11/12/23 07:28 62 11/12/23 06:17 55 L 12 170/98 H 95 O2 Del Method 11/12/23 15:16 11/12/23 13:02 Room Air 11/12/23 08:52 Room Air 11/12/23 08:00 Room Air 11/12/23 07:28 11/12/23 06:17 Room Air PG Care Time/CCT Total # of Minutes Spent Total Time Spent with Patient: Total time spent is greater than 50% in coordination of care (as documented) at patient's floor/unit and/or counseling patient: Coding Level of Care Code 17651 IN/OBS CONSULT LVL 5,80M Diagnoses Renal infarct N28.0 HTN (hypertension) I10
[2023-11-12] MEDS ORDERED: lisinopril 5 MG TAB PO ONE (16:51)
[2023-11-12] MEDS ORDERED: OPTIRAY 320 125ml IV ONE (17:39)
[2023-11-12 17:43] LABS: ANTI-Xa, UFH(UnfractionatedHep 0.42 IU/ml (0.3-0.7)
--- NOTE | 2023-11-12 18:17 | CT Scan Report ---
CT ANGIOGRAM OF THE CHEST COMBO CLINICAL HISTORY: Renal infarcts. COMPARISON STUDY: Chest CT dated 10/30/2023. Abdominal CT dated 11/12/2023. TECHNIQUE: Before and following the IV administration of 119 cc of Optiray 320, CT angiogram of the c hest was performed from the thoracic inlet to the upper abdomen utilizing the dissection protocol. Im ages are reviewed in the axial, sagittal, and coronal planes. 3-D MIPS images are created and assesse d. IV contrast was administered without complication. A dose lowering technique was utilized adherin g to the principles of ALARA. CT DOSE: 472.02 mGy.cm FINDINGS: Thyroid: Mildly enlarged and heterogeneous. Thoracic aorta: No intramural hematoma is seen on the unenhanced series. The thoracic aorta is normal in caliber and demonstrates standard 3-vessel arch anatomy. No dissection is seen. The arch vessels are widely patent. Pulmonary vasculature: The pulmonary trunk is normal in caliber. There are no filling defects identif ied in the main, lobar, or segmental pulmonary arteries to indicate pulmonary embolus. Heart: The heart is top normal in size and without pericardial effusion. Lungs and pleural spaces: There is mild emphysema. There are trace pleural effusions with dependent a telectasis. There is no airspace consolidation typical for pneumonia. The trachea and central airways are clear. A 2 mm right apical nodule on image #54 is unchanged. Mediastinum: There is no mediastinal lymphadenopathy. Bessy: Clear. Axillae: There is no axillary lymphadenopathy. Upper abdomen: Scattered hepatic cysts measuring up to 1.8 cm. Partially visualized upper abdominal v iscera is otherwise grossly unremarkable. Skeletal structures: No lytic or blastic bony lesions are seen. IMPRESSION: 1. Unremarkable CT angiogram of the thoracic aorta. 2. There is no evidence of pulmonary embolus in the main, lobar, or segmental pulmonary arteries. 3. Mild emphysema. 4. Trace pleural effusions. 5. There is no airspace consolidation typical for pneumonia. 6. Additional findings above. ACT 112: Negative or not required by law. Electronically signed by: Devin Mena M.D. 11/12/2023 6:14 PM
[2023-11-12] MEDS: ONDANSETRON INJ 2 MG/ML 2 ML VIAL IV PRN (18:36)
[2023-11-12] MEDS ORDERED: ACETAMINOPHEN 1,000 MG/100 ML VIAL IV STA (22:02)
[2023-11-13 07:47] LABS: Basophils # (auto) 0.04 K/uL (0.00-0.20); Basophils % (auto) 0.4 %; Eosinophils # (auto) 0.01 K/uL (0.00-0.50); Eosinophils % (auto) 0.1 %; Hematocrit (blood only) 38.7 % (37.0-47.0); Hemoglobin 13.4 g/dl (12.0-16.0); Immature Granulocytes # (auto) 0.04 K/uL (0.01-0.20); Immature Granulocytes % (auto) 0.4 %; Lymphocytes # (auto) 1.44 K/uL (1.20-3.40); Lymphocytes % (auto) 12.7 %; Mean Corpuscular Hemoglobin 30.9 pg (25.0-34.0); Mean Corpuscular Hgb Conc 34.6 g/dL (32.0-36.0); Mean Corpuscular Volume 89.2 fL (80.0-100.0); Mean Platelet Volume 9.4 fL (9.4-12.4); Monocytes # (auto) 0.82 K/uL (0.11-0.59); Monocytes % (auto) 7.2 %; Neutrophils # (auto) 9.01 K/uL (1.40-6.50); Neutrophils % (auto) 79.2 %; Platelet Count 260 K/uL (130-400); RDW Coefficient of Variation 11.7 % (11.5-14.5); RDW Standard Deviation 37.6 fL (36.4-46.3); Red Blood Count 4.34 M/uL (4.20-5.40); White Blood Count 11.36 K/ul (4.8-10.8)
[2023-11-13 08:00] LABS: Albumin Globulin Ratio 1.5 (0.9-2); Albumin Level 3.8 gm/dl (3.4-5.0); BUN Creatinine Ratio 10.4 (10-20); Bilirubin,Total 0.6 mg/dl (0.2-1.0); Calcium 8.6 mg/dl (8.6-10.3); Creatinine Clr Calc Pharmacy 99.1 ml/min; Est GFR (African American) 114.7 ml/min; Globulin 2.6 gm/dl (2.5-4.0); Potassium 3.3 mmol/L (3.5-5.1); Total Protein 6.4 gm/dl (6.0-8.3)
[2023-11-13 08:01] LABS: ANTI-Xa, UFH(UnfractionatedHep 0.47 IU/ml (0.3-0.7)
[2023-11-13] MEDS ORDERED: POTASSIUM CHLORIDE CRTAB 20 MEQ TABCR PO STA (08:02)
--- NOTE | 2023-11-13 08:12 | Hospitalist Progress Note ---
Date of Service November 13, 2023 Assessment & Plan (1) Renal infarct: Plan: Patient presented with pain onset 2 PM 11/11/2023 gradually worsening in the left abdomen/flank. Peaked at 7/10 and then gradually improved CTA/P: Segmental infarct of the lower pole of the right kidney, possible smaller infarct in the lower pole of the left kidney. Renal artery duplex shows no flow the lower pole of right kidney consistent with known infarct, otherwise no elevated velocity in the main arteries to suggest significant NOAH Nephrology consulted, agree with continuing lisinopril for blood pressure control and anticoagulation at this time. Consulted vascular surgery Dr. Mya Jaime for b/l acute renal infarct. Reviewed case, agree with anticoagulation at this time. Images pushed for review. Recommended CTAchest to rule out aortic ab normalities. Additional imaging not recommended at this time. Patient is outside the window for revascularization. Appreciate recommendations. If doing well anticipate conversion to Eliquis and follow-up as outpatient CT chest aortic protocol without evidence of pulmonary emboli, thoracic aortic abnormalities, or other vascular abnormalities. Mild emphysema is noted, unchanged 2 mm right apical nodule compared to 10/30 is noted Factor V/Cardiolipin/beta-2 GPI pending, unlikely to be returned during this hospitalization. Will convert to Eliquis if clinically well and stable Patient has a history of active tobacco use, and has a family history of multiple miscarriages in her mother. Patient has a history of hysterectomy due to recurrent clot/bleeding Smoking cessation recommended - See HTN for antihypertensive management (2) History of heavy vaginal bleeding: Plan: S/p hysterectomy in the past with [facility] OF HEMOPHILIA (3) HTN (hypertension): Plan: Patient has had mild hypertension while inpatient, consistent with renal infarct is highly likely to have at least 1 week of increased hypertension with gradual improvement. IWONA/ARB preferred due to renal etiology of hypertension, patient has been tolerating lisinopril 5 mg. Mildly hypertension on 5mg, continued on 10mg. Pt should check BP daily, if orthostatic or BP low-normal as this improves may cut in half/hold as needed. Plan DVT prophylaxis: Anticoagulated Diet: Regular Disposition: PCU CODE STATUS: Full code Admission and Anticipated Discharge Date Admission Date: November 12, 2023 Results & Data Results & Data Vital Signs (Past 12 Hours) Vital Signs Temp Pulse Pulse Resp BP Pulse Ox O2 Del Method 11/13/23 07:23 67 11/13/23 04:05 37.2 C 72 18 156/88 H 97 Room Air 11/13/23 00:04 37.0 C 77 16 163/89 H 95 Room Air 11/12/23 23:26 69 PG Care Time/CCT Total # of Minutes Spent Total Time Spent with Patient: Total time spent is greater than 50% in coordination of care (as documented) at patient's floor/unit and/or counseling patient: Coding Diagnoses Renal infarct N28.0 History of heavy vaginal bleeding Z87.42 HTN (hypertension) I10
[2023-11-13] MEDS ORDERED: BUTALBITAL/ACETAMIN/CAFFEINE TAB PO STA (08:38)
[2023-11-13] MEDS ORDERED: lisinopril 10 MG TAB PO SCH (09:00)
--- NOTE | 2023-11-13 10:16 | Nephrology Progress Note ---
Date of Service November 13, 2023 Assessment & Plan (1) Renal infarct: (2) HTN (hypertension): Plan 53 y o F with b/r renal infarct on CT A/P after presented with abdominal pain. Normal kidney function. UA with microscopic hematuria. Doppler with no Renal artery disease. 2D Echo, chest CTA unremarkable. Has normal renal function. She is already out of the window for any percutaneous intervention. Hypercoagulability study was ordered, currently pending. -- Focus on blood pressure control, continue lisinopril 5 mg p.o. daily and increase dose as tolerated -- Agree with continuing on anticoagulation -- Strongly encouraged to quit smoking Will sign off. Thank you for the consult. Admission and Anticipated Discharge Date Admission Date: November 12, 2023 Subjective Dorita was seen and evaluated this am. Overall feeling better, headache slightly improved. Kidney function normal, electrolyte acceptable. Blood pressure slowly started to improve. Review of Systems Review of Systems: Detailed review of system was done and pertinent positives and negatives are mentioned above. Physical Exam Constitutional: WD/WN, vitals as above no acute distress Respiratory: Auscultation: lungs clear to auscultation bilaterally Cardiovascular: RRR, no murmur, no edema Musculoskeletal: Extremities: extremities normal to inspection Skin: no rashes, warm and dry Neurologic: no focal motor deficits Psychiatric: Orientation: alert and oriented x 3 Affect: euthymic affect Results & Data Vital Signs (Past 12 Hours) Vital Signs Temp Pulse Pulse Pulse Resp BP Pulse Ox 11/13/23 09:01 37.0 C 71 13 153/82 H 96 11/13/23 07:23 67 11/13/23 04:05 37.2 C 72 18 156/88 H 97 11/13/23 00:04 37.0 C 77 16 163/89 H 95 11/12/23 23:26 69 O2 Del Method 11/13/23 09:01 Room Air 11/13/23 07:23 11/13/23 04:05 Room Air 11/13/23 00:04 Room Air 11/12/23 23:26 PG Care Time/CCT Total # of Minutes Spent Total Time Spent with Patient: Total time spent is greater than 50% in coordination of care (as documented) at patient's floor/unit and/or counseling patient: Coding Level of Care Code 66410 SUB INP/OBS CARE 2/35MIN Diagnoses Renal infarct N28.0 HTN (hypertension) I10
--- NOTE | 2023-11-13 14:06 | Discharge Summary ---
Date of Service November 13, 2023 Admission HPI Per Admitting Provider 53yo Female with PMH hysterectomy here for right sided abd pain found to have right renal infarct. Patient states today she developed right sided abd pain while eating, localized and constant, she developed loss of appetite vomitting, given persistant pain she came to the ED. Patient denies any change in bowel or bladder function, no altered sensation in abd. In ED she received toradol and zofran, which helped her pain and nausea. Patient states a few weeks she developed an ear infection, has since recovered but also lost her sense of taste and her BP increased. She denies any current medications or PMH. States she had a holter monitor years ago was normal, states her BP usually on the lower end. Patient had hysterectomy 2015 for heavy menstrual bleed. Last colonoscopy 2019 normal, most recent mammogram result pending. Patient has family history HTN, HLD, mom had breast and lung cancer, dad had colon cancer and lymphoma. Patient smokes 7-8 cigs daily. Principal Diagnosis Renal Infarct Discharge Exam General: A&Ox3. NAD. Cooperative. HEENT: Atraumatic, normocephalic. Vision/hearing intact, PERLAA. Pulm: CTAB A&P. -wheezes, -rales, -rhonchi. Symmetrical chest rise. No increased work of breathing. No respiratory distress. Cardiac: RRR, -mrg. Radial pulses intact and symmetrical. Abdominal: Improved tenderness, minimal RLQ TTP not worsened on palpation. nondistended, soft. BS present. Ext: Warm/dry. 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 No LE weakness. Sensation to soft touch intact in hands/feet, no numbness/paresthesias. Discharge Data Allergies Allergy/AdvReac Type Severity Reaction Status Date / Time No Known Allergies Allergy Unverified 04/03/16 11:34 Consultations 11/12/23 02:00 ED Decision to Admit Stat 11/12/23 02:23 Consult Nephrology Routine 11/12/23 10:36 Radiology Transfer Of Images Stat Ordered Studies 11/11/23 23:44 CT abd pelvis IV con only Stat 11/12/23 01:39 US doppler renal [US duplex renal artery] Stat 11/12/23 15:58 CT angio chest dissec wo/w con Stat Hospital Course (1) Renal infarct: Summary: Dorita is a 53-year-old female with a history of tobacco use who presented with worsening pain in her left abdomen and flank. Her pain onset was around 2 PM 11/11/23. She was evaluated in the ER and was found to have evidence of right lower pole renal infarct with suspected small infarct in the left renal lower pole. Patient was started on anticoagulation overnight. Consulted vascular surgery Dr. May Jaime for b/l acute renal infarct. Reviewed case, agreed with anticoagulation. Images pushed for review. Recommended CTAchest to rule out aortic abnormalities. Additional imaging not recommended at this time. Patient is outside the window for revascularization. Patient clinically progressed and was converted to Eliquis and discharged to follow-up with outpatient vascular surgery. Her blood pressure was mildly elevated, she was discharged to continue lisinopril 10 mg daily with down titration as needed as BP likely to gradually improve over the next week. CT chest aortic protocol without evidence of pulmonary emboli, thoracic aortic abnormalities, or other vascular abnormalities. Mild emphysema is noted, unchanged 2 mm right apical nodule compared to 10/30. Factor V/Cardiolipin/beta- 2 GPI pending, patient does have a history of 1/3 pack/day tobacco use, cessation was recommended and discussed with patient who was agreeable. Echo did not show any valvular pathology or cardiac source of emboli. EF 60-65% with normal wall motion. LDL <70. (2) History of heavy vaginal bleeding: S/p hysterectomy in the past with [facility] (3) HTN (hypertension): Patient has had mild hypertension while inpatient, consistent with renal infarct is highly likely to have at least 1 week of increased hypertension with gradual improvement. IWONA/ARB preferred due to renal etiology of hypertension, patient has been tolerating lisinopril 5 mg. Mildly hypertension on 5mg, co ntinued on 10mg. Pt should check BP daily, if orthostatic or BP low-normal as this improves may cut in half/hold as needed. Total Time Total Time Spent Total Time Spent (In Minutes): Time spend day of discharge 60 minutes including direct patient care, documentation, review of labs and images, and coordination of care. Discharge Plan Discharge Items Patient Disposition: Home - Self-Care Reason For Visit: ABD PAIN Discharge Diagnosis: Renal Infarct Activity: Resume your previous activity Non-emergency contact: Primary Care Provider and Specialist Call non-emergency contact if: you have any medication questions and your symptoms worsen Follow-up/Referrals: Vira Vargas MD [Physician] - James De La Rosa [Primary Care Provider] - Jorge Manzano MD [Physician] - Diet: Heart Healthy Addtl Attending Provider Instructions: You are seen in the hospital for renal infarction. Your CT of the abdomen showed evidence ofA right lower pole segmental infarct, and possible smaller infarct of the lower pole of the left kidneys. Renal arteries appeared patent, and follow-up renal duplex showed no elevated velocities in the main renal artery suggestive of NOAH and no flow to the lower pole of the right kidney consistent with known renal infarct. Your case and imaging was discussed with and reviewed by vascular surgery. A CTA of the aorta was recommended, this did not show any vascular abnormalities and specifically no evidence of dissection. You are recommended to continue anticoagulation for a minimum of 6 months with outpatient follow-up to vascular surgery. You have been transitioned to a blood thinner, Eliquis. Please continue to take Eliquis. Please take Eliquis 10 mg twice daily for 7 days (through the evening of 11/19/22) then starting on 11/20/22 take 5mg daily. This is a blood thinner which increases risk of bleeding. A small cut should have firm direct pressure applied to it for 10 minutes without checking. For any moderate or larger, or wound that does not stop bleeding; or any other signs of bleeding including bloody or black bowel movements please seek immediate medical attention. You have been started on a blood pressure medication, lisinopril. Please take lisinopril 10 mg daily and check your blood pressure at home. If your blood pressure is very well-controlled (around the 120s), you may take 1/2 tablet of this instead. If your blood pressure improves or is low you may hold this medication. Your blood pressure will likely improve over the next week to several weeks. An appointment base being scheduled for you for follow-up with vascular surgery. You should receive a call to confirm this appointment within the next 48 hours, if you do not receive a call from this appointment please call [phone]. If you develop any new or worsening symptoms including fever, chills, sweats, chest pain, chest pressure, difficulty breathing, uncontrolled nausea/vomiting, rash, wheezing, passing out or nearly passing out, bleeding, black/bloody bowel movements, or other new or concerning symptoms please call your primary care physician, or call 911 for re-evaluation in the emergency department if you are very concerned. Pending Studies at Discharge: No Stand-Alone Forms: My [facility], Smoking Cessation Medications and DC Order Prescriptions: New lisinopril 10 mg Tablet 10 mg PO QAM 30 Days Qty: 30 1RF Eliquis 5 mg tablet 5 mg PO Q12H 30 Days Qty: 72 0RF Rx Instructions: Take 10mg twice daily 11/14/23-11/19/22. Starting 11/20/22 take 5mg twice daily Continued acetaminophen 500 mg Tablet 500 mg PO DIRECTED PRN (Reason: Pain) Discontinued lisinopril 5 mg tablet 5 mg PO DAILY Discharge Orders: Discharge Order (Routine); Ordered 11/13/23 Ordered By: Johnny Escobar Admission Data Admit Date/Time: 11/12/23 02:00 Attending Provider: Johnny Escobar Admit Provider: Lorraine Love Primary Care Provider: James De La Rosa Other Providers: Consuelo Timmons; Vira Vargas Other Interventions: Discharge Summary Assessment (RN) Last Done: 11/13/23 14:07 Coding Level of Care Code 26419 INP/OBS DISCH >30 MIN Diagnoses Renal infarct N28.0 History of heavy vaginal bleeding Z87.42 HTN (hypertension) I10
[2023-11-13 14:33] LABS: Chol HDL Ratio 2.4 (0-5)
[2023-11-13] MEDS ORDERED: POTASSIUM CHLORIDE CRTAB 20 MEQ TABCR PO ONE (15:00)
[2023-11-13] MEDS: ACETAMINOPHEN 500 MG TAB PO PRN (17:26)
[2023-11-13] MEDS: ONDANSETRON INJ 2 MG/ML 2 ML VIAL IV PRN (17:28)
[2023-11-13] MEDS ORDERED: HEPARIN STOP ORDER ONE (18:00)
[2023-11-13] MEDS ORDERED: APIXABAN 5 MG TABLET PO SCH (18:30)
--- NOTE | 2023-11-13 19:57 | Billing Data ---
Date of Service November 12, 2023 Coding Level of Care Code 58228 INT INP/OBS CARE
[2023-11-17 01:00] LABS: Anti Cardiolipin Ab IgG <2.0 GPL-U/mL; Anti Cardiolipin Ab IgM 2.2 MPL-U/mL; Anti-Thrombin III Activity 119 % normal (80-135); B2 Glycoprotein IgG <2.0 U/mL (<20.0); B2 Glycoprotein IgM <2.0 U/mL (<20.0); PTT LA Screen 29 sec (<=40); Protein S Functional(Activity) 69 % normal (60-140)
[2023-11-17 02:22] LABS: Factor 5 Mutation NEGATIVE
== END 2023-11-13 18:38 | disposition home or self-care (01) | DRG 700 ==
LOC: ED 23:00 → EDINP 11-12 02:00 → SUATTDRO 11-12 02:00 → 2N 11-12 02:23
DX: Z90.710 Acquired absence of both cervix and uterus; N28.0 Ischemia and infarction of kidney; F17.210 Nicotine dependence, cigarettes, uncomplicated; I10 Essential (primary) hypertension